=== PATIENT | female | born 1950 | race Caucasian/White ===

== ENCOUNTER 2019-11-03 16:49 | Emergency (ER) | payer MEDICARE, SELFPAY ==
--- NOTE | ~2019-11-03 | XR_ITS ---
EXAMINATION: XR chest 1V portable DATE: 11/03/2019 17:22 INDICATION: Transient alteration of awareness. TECHNIQUE: A single frontal view of the chest was obtained. COMPARISON: None. FINDINGS: There is a nodule in right midlung zone. No pleural effusion or pneumothorax. Cardiomegaly is noted. IMPRESSION: 1. Nodule in right midlung zone suspicious for primary bronchogenic carcinoma. Noncontrast chest CT i s recommended. 2. Cardiomegaly. Reviewed, dictated and finalized at location A. IMPRESSION: 1. Nodule in right midlung zone suspicious for primary bronchogenic carcinoma. Noncontrast chest CT is recommended. 2. Cardiomegaly.
--- NOTE | ~2019-11-03 | CT_ITS ---
EXAMINATION: CT brain wo con DATE: 11/03/2019 16:57 INDICATION: Facial weakness. Speech deficit. TECHNIQUE: Computed tomography (CT) of the head was performed without intravenous contrast. The mA wa s adjusted according to patient size. Iterative reconstruction technique was employed. The dose-lengt h product was 681.00 mGy-cm. COMPARISON: None FINDINGS: There is a 3.2 cm mass with surrounding vasogenic edema in left temporal lobe. A punctate d ensity in the mass may be calcification or microhemorrhage. There is no acute ischemic infarct. The v entricles are normal in size. The paranasal sinuses are clear. The orbits are normal. The mastoid air cells are normal. There is an 8 mm mass in the left frontoparietal scalp, likely benign. IMPRESSION: 1. Left temporal lobe mass, consistent with glioblastoma versus metastatic disease. Brain MRI without and with contrast is recommended. Reviewed, dictated and finalized at location A. IMPRESSION: 1. Left temporal lobe mass, consistent with glioblastoma versus metastatic dise ase. Brain MRI without and with contrast is recommended.
[2019-11-03 17:01] VITALS: BP 154/111; PULSE 92; RESP 17; TEMP 37.2; O2SAT 99
[2019-11-03 17:11] VITALS: BP 154/111; PULSE 90; RESP 17; O2SAT 100
--- NOTE | 2019-11-03 17:11 | ECG_ITS ---
Measurements Intervals [place] Rate: 87 P: 15 AK: 164 QRS: -8 QRSD: 81 T: 11 QT: 356 QTc: 430 Interpretive Statements SINUS RHYTHM DELAYED PRECORDIAL R/S TRANSITION VOLTAGE CRITERIA FOR LVH BORDERLINE T WAVE ABNORMALITY- INFERIOR LEADS BORDERLINE ECG Electronically Signed On 11-03-2019 20:20:13 CDT by Maurizio Edward D.O.
--- NOTE | 2019-11-03 17:16 | ED.NEUROSD ---
HPI - Neuro Symptoms/Deficit General Chief Complaint: Suspected CVA Stated Complaint: ??CVA Time Seen by Provider: 11/03/19 16:54 History of Present Illness HPI Narrative: Patient is a 69-year-old female who presents the ER with altered mentation. and patient were driving towards [place] when she started speaking incoherently and having slurred speech. He finally got to the point where it was not improving and he opted to call EMS who brought her to the ER. Patient has difficulty repeating phrases but outside that she is speaking fluently. She does not seem to understand what is going on with her when you explain it to her. She has no focal numbness or weakness or facial droop. reports she is otherwise healthy. Related Data Home Medications Medication Instructions Recorded Confirmed No Home Medications 11/03/19 11/03/19 Allergies Allergy/AdvReac Type Severity Reaction Status Date / Time No Known Allergies Allergy Verified 11/03/19 17:32 Review of Systems Review of Systems: ROS unobtainable: Yes unobtainable due to medical condition PMFSH Past Medical History Medical History (Updated 11/05/19 @ 00:00 by Robert Hirsch) Healthy female adult Surgical History Surgical History (Updated 11/03/19 @ 18:12 by Domenico Mitchell MD) No significant past surgical history Social History Social History (Updated 11/03/19 @ 18:12 by Domenico Mitchell MD) Smoking status: Never smoker Exam Narrative: Exam Narrative: GENERAL: Well-appearing, well-nourished, and in no acute distress. HEAD: Normocephalic, atraumatic. EYES: PERRLA and EOMI. ENT: Mucous membranes moist. CHEST: Clear to auscultation. No respiratory distress. HEART: Regular rate and rhythm. Normal peripheral pulses. ABDOMEN: Soft, nontender, nondistended. EXTREMITIES: Normal range of motion. No edema. SKIN: Warm, dry, no rash. NEURO: No upper or lower extremity drift. Cranial nerves II through XII intact. Clear speech but has difficulty understanding things are explained to her. Normal [id number] and ljie-[id number] testing. Patient is awake alert, she knows her name and that is November 02 but believes it is the year 1999. Does not seem to understand why she is at a hospital. Course Reevaluation(s) Reevaluation #1: Patient's , son, and daughter have been informed of the results and seriousness of the illness. They have requested patient go to [facility] to be evaluated. Have spoken with Dr. Griffin in the ER who reports that there are no neurosurgery beds and they are currently boarding people for up to 12 hours in the ER. He recommends that we try another facility and if we are unable to get her to another hospital quicker then he would accept her. Date: 11/03/19 Time: 17:57 Reevaluation #2: I spoke with Dr. Bourgeois who is on-call for Dr. Larson at [facility] with the neurosurgery department. He is reviewed the patient's images and feels the hyperdensity represents calcification and not microhemorrhage. He thinks patient is good candidate for further stepdown unit and there is a bed coming available. He is excepted the patient as a direct admission. Patient is received IV Keppra 1 g and is also received Decadron 10 mg. Should patient be her longer she will need 4 mg every 6 hours and this will be ordered scheduled. Patient still has receptive communication deficit. Date: 11/03/19 Time: 19:40 Vital Signs Vital signs: Vital Signs Temperature 98.9 F 11/03/19 17:01 Pulse Rate 92 11/03/19 17:01 Respiratory Rate 17 11/03/19 17:01 Blood Pressure 154/111 H 11/03/19 17:01 Pulse Oximetry 99 11/03/19 17:01 Temperature 98.2 F 11/04/19 06:37 Pulse Rate 81 11/04/19 06:37 Respiratory Rate 18 11/04/19 06:37 Blood Pressure 132/88 11/04/19 06:37 Pulse Oximetry 97 11/04/19 06:37 MDM - Neuro Symptoms/Deficit Lab Data Result diagrams: 11/03/19 17:35 11/03/19 17:35 Labs: L
[2019-11-03 17:31] LABS: Glucose Point of Care 96 (65-105)
[2019-11-03 17:40] LABS: Basophils Percent Auto 0.3 % (0.2-1.2); Eosinophils Absolute Auto 0.1 K/mm3 (0-0.3); Eosinophils Percent Auto 1.2 % (0-4.4); Hematocrit 40.9 % (37.0-47.0); Hemoglobin 13.6 g/dL (12.0-15.0); Immature Granulocyte Absolute 0.03 K/mm3 (0.00-0.031); Immature Granulocyte Percent A 0.3 % (0-0.5); Lymphocytes Absolute Auto 1.48 K/mm3 (0.9-3.2); Lymphocytes Percent Auto 15.9 % (18.3-44.2); Mean Corpuscular HGB Conc 33.3 g/dl (32-36); Mean Corpuscular Hemoglobin 31.6 pg (26-34); Mean Corpuscular Volume 95.1 fl (80-100); Mean Platelet Volume 11.8 fl (7.4-10.4); Monocytes Absolute Auto 0.7 K/mm3 (0.1-0.6); Monocytes Percent Auto 7.6 % (2.6-8.5); Neutrophils Percent Auto 74.7 % (45.5-73.1); Platelet Count Result 184 k/mm3 (150-375); Red Cell Distribution Width 13.2 % (11.5-14.5); White Blood Count 9.3 K/mm3 (4.5-10.0)
[2019-11-03 17:50] VITALS: BP 156/103; PULSE 94; RESP 14; O2SAT 99
[2019-11-03 17:50] LABS: Partial Thromboplastin Time 29.2 SECONDS (22.3-36.8); Prothrombin Time 12.9 Seconds (11.1-14.7)
[2019-11-03 17:51] LABS: Blood Urea Nitrogen 11 mg/dL (7-17); Calcium 9.2 mg/dL (8.4-10.2); Carbon Dioxide 25 mmol/L (22-30); Chloride 103 mmol/L (98-107); Estimated CRCL calculation 56 ml/min; Estimated Glomerular Filt Rate > 60; Glucose 100 mg/dL (65-105); Potassium 3.9 mmol/L (3.4-5.0); Sodium 137 mmol/L (137-145)
[2019-11-03] MEDS: levETIRAcetam 1000MG/NACL100ML 1,000 MG/100 ML BAG 400 MG IVPB (18:00)
[2019-11-03 18:04] LABS: Troponin I < 0.012 ng/mL (0.000-0.034)
[2019-11-03 18:48] VITALS: BP 140/96; PULSE 90; RESP 14; O2SAT 98
--- NOTE | 2019-11-03 21:01 | PC.NURSE ---
Called [facility] transfer line to inquire about bed placement. Still waiting on a room.
[2019-11-03 22:07] VITALS: BP 145/96; PULSE 90; RESP 18; O2SAT 98
[2019-11-03 23:36] VITALS: BP 145/99; PULSE 92; RESP 18; O2SAT 99
--- NOTE | 2019-11-04 00:46 | PC.NURSE ---
pt resting quietly, at bedside resting, no distress noted, awaiting transport.
[2019-11-04 02:47] VITALS: BP 150/92; PULSE 88; RESP 16; TEMP 36.7; O2SAT 100
--- NOTE | 2019-11-04 02:55 | PC.NURSE ---
Spoke with Mervat at the [facility] transfer line. A room has not been assigned.
[2019-11-04 06:26] VITALS: BP 132/88; PULSE 81; RESP 16; TEMP 36.8; O2SAT 98
[2019-11-04 06:37] VITALS: BP 132/88; PULSE 81; RESP 18; TEMP 36.8; O2SAT 97
== END 2019-11-04 06:39 | disposition short-term general hospital (02) ==
PROVIDERS: Emergency Provider Emergency Medicine
DX: D49.6 Neoplasm of unspecified behavior of brain (principal); I51.7 Cardiomegaly; R91.8 Other nonspecific abnormal finding of lung field
CPT/HCPCS: 36415; 70450; 71045; 80048; 82948; 84484; 85025; 85610; 85730; 93005; 96365; 96367; 96375; 99285; J0131; J1100; J1953